=== PATIENT | female | born 1980 | race Asian ===

== ENCOUNTER → 2023-05-22 16:50 | Outpatient (CLI) | payer OTHER, MEDICAID, SELFPAY ==
--- NOTE | 2023-05-22 16:54 | DI.RAD.S_ITS ---
PROCEDURE: XR FINGER RT MIN 2V INDICATIONS: Right thumb pain TECHNIQUE: AP hand, 2 views of the right thumb. COMPARISON: None. FINDINGS: Bones: No fractures or dislocations. No suspicious bony lesions. The right thumb interphalangeal joint has joint space narrowing with a 2 millimeter cyst on the ulnar aspect of the middle phalanx at the interphalangeal joint. No radiopaque foreign bodies. Soft tissues: No suspicious soft tissue calcifications. 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 Dictated by: Alejo Valera M.D. on 05/22/2023 at 21:56 Approved by: Alejo Valera M.D. on 05/22/2023 at 22:00
== END ==
PROVIDERS: Referring Provider Physician Assistant; Visit Provider Physician Assistant
DX: M79.644 Pain in right finger(s) (principal)
CPT/HCPCS: 73140

== ENCOUNTER 2023-06-18 12:15 | Outpatient (RCR) | payer OTHER, MEDICAID, SELFPAY ==
--- NOTE | 2023-06-08 11:43 | OT.OP.EVAL ---
Visit Care Team Role Provider Type Mita Bro PA-C Attending Provider Advanced Licensed Real Estate Broker Family Provider Primary Care Provider Referring Provider Specialty: Emergency Medicine Address: [address] [place] [address], [id number] Email: [email or web address] Occupational Therapy Initial Evaluation OT Outpatient Adult Evaluation Start: 06/08/23 11:07 Freq: Status: Active Protocol: Document 06/08/23 11:11 AMS (Rec: 06/08/23 11:42 AMS [id number]) General Information - Adult Visit Number 12/08 Insurance Information [employer]; *MAX 24 PT/OT PCY Visit Start Time 08:40 Visit Stop Time 09:15 Total Visit Minutes 35 Treatment Setting Outpatient Care Note Type Initial Evaluation Identification Confirmed Yes Identification Confirmed By Self; Taam Goals Financial Sales Representative Goals 1. Taam will be modified independent with home exercise program utilizing provided written and visual instructions from therapist. 2. Taam will verbalize understanding of basic joint protection principles referring to written/visual handout as needed. Assessment/Plan Treatment Assessment Shaina is a 42 year-old right hand dominant female referred to outpatient OT by Mita Bro MD, secondary to having trouble bending her R thumb for the past 3-4 months w/ noted tenderness at distal IPJ. Based on reviewed MD note , pain in R thumb has been present for ~ 4 months, including pain at the base of her R thumb. Patient reportedly has R wrist/thumb brace and MD impression is that there is likely some ligament shortening of her IPJ . X-ray was completed on of R thumb. Findings were as follows: degenerative changes at IPJ w/ 2 millimeter cyst on the ulnar aspect of the middle phalanx at the IPJ. Evaluation findings: ROM = - 10 degrees active R IPJ ext; pain w/ passive IPJ ext (full, 0 degrees active L IPJ ext). 45 degrees active R IPJ flex; 55 degrees passive R IPJ flex (47 degrees active L IPJ flex) . 43 degrees active R MPJ flex ; 0 degrees active R MPJ ext. Some pain reported w/ palpation at the R MPJ. 40 degrees active R radial thumb abd (45 degrees active L radial thumb abd); 35 degrees active R palmar thumb abd (41 degrees active L palmar thumb abd). Tightness R thumb add > L thumb add. Strength testing results: 18. 0# of force w/ R coroner forensic technician ( compared to women 40-44 years of age = 70.4 +/- 13.5# of force) vs 23.0# of force w/ L coroner forensic technician (compared to women 40-44 years of age = 62.3 +/- 13.8# of force) w/ dynamometer II strength testing. 4.0# of force R lateral guerrero pinch ( compared to women 40-44 years of age = 16.7 +/- 3.1# of force) vs 6.0# of force L lateral guerrero pinch (compared to women 40-44 years of age = 15 .8 +/- 3.1# of force). 5.0# of force R 3-jaw pinch (compared to women 40-44 years of age = 17.0 +/- 3.1# of force) vs 7. 0# of force w/ L 3-jaw pinch ( compared to women 40-44 years of age = 16.6 +/- 3.5# of force). 3.0# of force R tip pinch (compared to women 40-44 years of age = 11.5 +/- 2.7# of force) vs 4.0# of force L tip pinch (compared to women 40-44 years of age = 11.1 +/- 3.0# of force). Shaina would likely benefit from outpatient OT secondary to R thumb pain/discomfort, decreased active range of motion, tightness/shortening of thumb abductor, which is impacting her ability to engage in meaningful activities, including execution of work based tasks. Home Exercise Program 06/08/23 = instructed in self- myofascial release of thumb add w/ instruction to hold for 20 to 30 seconds (complete 1 rep R thumb up, 1 rep L thumb up). instructed in passive IP flex via tucking of thumb prox to 2nd digit of right hand w/ instruction to hold for 20 to 30 seconds. instructed in passive IP ext via positioning of thumb on top of TT ( pushing down until a 'stretch' is felt) w/ instruction to hold for 20 to 30 seconds. Length of treatment (weeks) 6 Plan of Care Start Date 06/08/23 Plan of Care End Date 07/20/23 Treatment Frequency Once a Week Therapeutic Contents Active Range of Motion, Adaptive Equipment Education, Client Education,Functional Activities,Home Exercise Program,Joint Protection, Manual Therapy,Education,Self- Care,Stretching/Flexibility Activities,Therapeutic Activities,Therapeutic Exercises,Modalities Modalities As Needed,As Prescribed Additional Types of Modalities Heat/Ice/Contrast Baths/ Paraffin/Ultrasound
--- NOTE | 2023-06-18 13:03 | OT.OP.TRT ---
Visit Care Team Role Provider Type Mita Bro PA-C Attending Provider Advanced Crotch Breaker Family Provider Primary Care Provider Referring Provider Specialty: Emergency Medicine Address: [address] [place] [address], [facility] Email: [email or web address] Occupational Therapy Treatment Note OT Outpatient Treatment Note - Adult Start: 06/08/23 11:07 Freq: Status: Active Protocol: Document 06/18/23 12:56 AMS (Rec: 06/18/23 13:02 AMS [id number]) OT Outpatient Adult Treatment Note Visit Information Visit Number 01/08 Plan of Care Dates 06/08/23 - 07/20/23 Insurance Information [employer]; *MAX 24 PT/OT PCY Setting Treatment Setting Outpatient Care Visit Type Note Type Treatment Note General Information General Information Shaina is a 42 year-old right hand dominant female referred to outpatient OT by Mita Bro MD, secondary to having trouble bending her R thumb for the past 3-4 months w/ noted tenderness at distal IPJ. Based on reviewed MD note , pain in R thumb has been present for ~ 4 months, including pain at the base of her R thumb. Patient reportedly has R wrist/thumb brace and MD impression is that there is likely some ligament shortening of her IPJ . X-ray was completed on of R thumb. Findings were as follows: degenerative changes at IPJ w/ 2 millimeter cyst on the ulnar aspect of the middle phalanx at the IPJ. - Subjective Identification Type Name Observations No new concerns were reported by Shaina. - Objective Objective Measurements Please refer to below for progress towards meeting established OT goals: Mcfp Goals 1. Janaem will be modified independent with home exercise program utilizing provided written and visual instructions from therapist. 2. Shaina will verbalize understanding of basic joint protection principles referring to written/visual handout as needed. - Treatment 1 Descriptor Ultrasound. x 8 minutes. Dorsal R webspace. 20% duty cycle. 2.0 w/cm2. Skin intact pre- and post-treatment. No c/ o discomfort. Exercises 1 Descriptor Thumb abduction. Single rubberband. 3 x 10. Thumb extension. Single rubberband. 3 x 10. - Assessment Assessment of Improvement Upgraded ther ex/HEP. Overall, good session. Recommend upgrading HEP as tolerated. Consider isometric functional 'c' and resisted 2nd digit abduction. Shaina would likely benefit from outpatient OT secondary to R thumb pain/discomfort, decreased active range of motion, tightness/shortening of thumb abductor, which is impacting her ability to engage in meaningful activities, including execution of work based tasks. Home Exercise Program 06/18/23 = Rec 3 sets of 10 repetitions w/ utilization of single rubberband. Thumb ext/ thumb abduction. 06/08/23 = instructed in self- myofascial release of thumb add w/ instruction to hold for 20 to 30 seconds (complete 1 rep R thumb up, 1 rep L thumb up). instructed in passive IP flex via tucking of thumb prox to 2nd digit of right hand w/ instruction to hold for 20 to 30 seconds. instructed in passive IP ext via positioning of thumb on top of TT ( pushing down until a 'stretch' is felt) w/ instruction to hold for 20 to 30 seconds. - Plan Therapy Recommendations Continue with Current Program, Advance per Rehabilitation Protocol
--- NOTE | 2023-07-22 11:12 | OT.OP.DC ---
Visit Care Team Role Provider Type Mita Bro PA-C Attending Provider Advanced Photographer'S Assistant Family Provider Primary Care Provider Referring Provider Address: [address] [place] [address], [id number] Email: [email or web address] Outpatient OT Outpatient Adult Evaluation Start: 06/08/23 11:07 Freq: Status: Active Protocol: Document 06/08/23 11:11 AMS (Rec: 06/08/23 11:42 AMS [id number]) General Information - Adult Visit Information Visit Number 12/08 Insurance Information [employer]; *MAX 24 PT/OT PCY Session Time Visit Start Time 08:40 Visit Stop Time 09:15 Total Visit Minutes 35 Setting Treatment Setting Outpatient Care Visit Type Note Type Initial Evaluation Identification Identification Confirmed Yes Identification Confirmed By Self; Taam Goals Care Home Goals Care Home Goals 1. Taam will be modified independent with home exercise program utilizing provided written and visual instructions from therapist. 2. Taam will verbalize understanding of basic joint protection principles referring to written/visual handout as needed. Assessment/Plan Assessment Treatment Assessment Shaina is a 42 year-old right hand dominant female referred to outpatient OT by Mita Bro MD, secondary to having trouble bending her R thumb for the past 3-4 months w/ noted tenderness at distal IPJ. Based on reviewed MD note , pain in R thumb has been present for ~ 4 months, including pain at the base of her R thumb. Patient reportedly has R wrist/thumb brace and MD impression is that there is likely some ligament shortening of her IPJ . X-ray was completed on of R thumb. Findings were as follows: degenerative changes at IPJ w/ 2 millimeter cyst on the ulnar aspect of the middle phalanx at the IPJ. Evaluation findings: ROM = - 10 degrees active R IPJ ext; pain w/ passive IPJ ext (full, 0 degrees active L IPJ ext). 45 degrees active R IPJ flex; 55 degrees passive R IPJ flex (47 degrees active L IPJ flex) . 43 degrees active R MPJ flex ; 0 degrees active R MPJ ext. Some pain reported w/ palpation at the R MPJ. 40 degrees active R radial thumb abd (45 degrees active L radial thumb abd); 35 degrees active R palmar thumb abd (41 degrees active L palmar thumb abd). Tightness R thumb add > L thumb add. Strength testing results: 18. 0# of force w/ R seam taper machine ( compared to women 40-44 years of age = 70.4 +/- 13.5# of force) vs 23.0# of force w/ L seam taper machine (compared to women 40-44 years of age = 62.3 +/- 13.8# of force) w/ dynamometer II strength testing. 4.0# of force R lateral guerrero pinch ( compared to women 40-44 years of age = 16.7 +/- 3.1# of force) vs 6.0# of force L lateral guerrero pinch (compared to women 40-44 years of age = 15 .8 +/- 3.1# of force). 5.0# of force R 3-jaw pinch (compared to women 40-44 years of age = 17.0 +/- 3.1# of force) vs 7. 0# of force w/ L 3-jaw pinch ( compared to women 40-44 years of age = 16.6 +/- 3.5# of force). 3.0# of force R tip pinch (compared to women 40-44 years of age = 11.5 +/- 2.7# of force) vs 4.0# of force L tip pinch (compared to women 40-44 years of age = 11.1 +/- 3.0# of force). Shaina would likely benefit from outpatient OT secondary to R thumb pain/discomfort, decreased active range of motion, tightness/shortening of thumb abductor, which is impacting her ability to engage in meaningful activities, including execution of work based tasks. Home Exercise Program 06/08/23 = instructed in self- myofascial release of thumb add w/ instruction to hold for 20 to 30 seconds (complete 1 rep R thumb up, 1 rep L thumb up). instructed in passive IP flex via tucking of thumb prox to 2nd digit of right hand w/ instruction to hold for 20 to 30 seconds. instructed in passive IP ext via positioning of thumb on top of TT ( pushing down until a 'stretch' is felt) w/ instruction to hold for 20 to 30 seconds. Plan Length of treatment (weeks) 6 Plan of Care Start Date 06/08/23 Plan of Care End Date 07/20/23 Treatment Frequency Once a Week Therapeutic Contents Active Range of Motion, Adaptive Equipment Education, Client Education,Functional Activities,Home Exercise Program,Joint Protection, Manual Therapy,Education,Self- Care,Stretching/Flexibility Activities,Therapeutic Activities,Therapeutic Exercises,Modalities Modalities As Needed,As Prescribed Additional Types of Modalities Heat/Ice/Contrast Baths/ Paraffin/Ultrasound Functional Wrist/Hand Scan Hand Side Sensory Assessment Sensory Profile2 OT Outpatient Treatment Note - Adult Start: 06/08/23 11:07 Freq: Status: Active Protocol: Document 07/22/23 11:10 AMS (Rec: 07/22/23 11:12 AMS [id number]) OT Outpatient Adult Treatment Note Visit Information Visit Number 01/08 Plan of Care Dates 06/08/23 - 07/20/23 Insurance Information [employer]; *MAX 24 PT/OT PCY Setting Treatment Setting Outpatient Care Visit Type Note Type Discharge Summary - Subjective Observations Taam has not been seen in the outpatient setting by OT since 06/25/23 and POC ; thus, recommend d/c from outpatient OT at this time. Therapist to re-evaluate as deemed appropriate by PCP with receipt of new referral. - Objective Objective Measurements Please refer to below for progress towards meeting established OT goals: Motivational Speaker Goals ALL GOALS D/C 07/22/23 1. Taam will be modified independent with home exercise program utilizing provided written and visual instructions from therapist. 2. Taam will verbalize understanding of basic joint protection principles referring to written/visual handout as needed. - - Assessment Assessment of Improvement Taam has not been seen in the outpatient setting by OT since 06/25/23 and POC ; thus, recommend d/c from outpatient OT at this time. Therapist to re-evaluate as deemed appropriate by PCP with receipt of new referral. - Plan Therapy Recommendations Discharge from Occupational Therapy
== END 2023-07-22 15:10 | disposition home or self-care (01) ==
LOC: OT 12:15
PROVIDERS: Family Provider Physician Assistant; PCP Physician Assistant; Referring Provider Physician Assistant; Visit Provider Physician Assistant
DX: M79.644 Pain in right finger(s) (principal); R53.1 Weakness
CPT/HCPCS: 97035; 97110; 97165